=== PATIENT | male | born 1960 | race American Indian/Alaskan Native ===

== ENCOUNTER 2017-06-15 10:55 | Outpatient (CLI) | payer MEDICARE, OTHER ==
[2017-06-15] MEDS ORDERED: XYLOCAINE TOPICAL 4% TP ONE (12:08)
[2017-06-16] MEDS ORDERED: XYLOCAINE TOPICAL 4% TP ONE (16:12)
== END 2017-06-15 10:56 | disposition home or self-care (01) ==
LOC: WOUND 10:55
PROVIDERS: ATTEND Surgery
DX: S81.801A Unspecified open wound, right lower leg, initial encounter (principal); Z94.0 Kidney transplant status; X58.XXXA Exposure to other specified factors, initial encounter; Y93.89 Activity, other specified; Y92.89 Other specified places as the place of occurrence of the external cause; Y99.8 Other external cause status
CPT/HCPCS: 11042; G0463

== ENCOUNTER 2017-06-21 10:30 | Outpatient (CLI) | payer MEDICARE, OTHER ==
[2017-06-21] MEDS ORDERED: XYLOCAINE TOPICAL 4% TP ONE ×2 (11:29→11:34)
== END 2017-06-21 10:31 | disposition home or self-care (01) ==
LOC: WOUND 10:30
PROVIDERS: ATTEND Surgery
DX: E11.622 Type 2 diabetes mellitus with other skin ulcer (principal); L97.812 Non-pressure chronic ulcer of other part of right lower leg with fat layer exposed; L12.0 Bullous pemphigoid; Z94.0 Kidney transplant status

== ENCOUNTER 2017-06-28 10:23 | Outpatient (CLI) | payer MEDICARE, OTHER ==
[2017-06-28] MEDS ORDERED: XYLOCAINE TOPICAL 4% TP ONE ×2 (11:06→11:17)
== END 2017-06-28 10:24 | disposition home or self-care (01) ==
LOC: WOUND 10:23
PROVIDERS: ATTEND Surgery
DX: L12.0 Bullous pemphigoid (principal); L97.812 Non-pressure chronic ulcer of other part of right lower leg with fat layer exposed; E11.622 Type 2 diabetes mellitus with other skin ulcer; Z94.0 Kidney transplant status

== ENCOUNTER 2017-07-06 13:46 | Outpatient (CLI) | payer MEDICARE, OTHER ==
[2017-07-06] MEDS ORDERED: XYLOCAINE TOPICAL 4% TP ONE ×2 (13:55→14:01)
== END 2017-07-06 13:47 | disposition home or self-care (01) ==
LOC: WOUND 13:46
PROVIDERS: ATTEND Surgery
DX: E11.622 Type 2 diabetes mellitus with other skin ulcer (principal); L97.812 Non-pressure chronic ulcer of other part of right lower leg with fat layer exposed; L12.0 Bullous pemphigoid; Z94.0 Kidney transplant status; Z85.528 Personal history of other malignant neoplasm of kidney

== ENCOUNTER 2017-07-13 13:28 | Outpatient (CLI) | payer MEDICARE, OTHER ==
[2017-07-13] MEDS ORDERED: XYLOCAINE TOPICAL 4% TP ONE ×2 (13:52→13:57)
== END 2017-07-13 13:29 | disposition home or self-care (01) ==
LOC: WOUND 13:28
PROVIDERS: ATTEND Surgery
DX: L97.812 Non-pressure chronic ulcer of other part of right lower leg with fat layer exposed (principal); L12.0 Bullous pemphigoid; E11.22 Type 2 diabetes mellitus with diabetic chronic kidney disease; Z94.0 Kidney transplant status
CPT/HCPCS: 97597; 97598

== ENCOUNTER 2017-07-19 13:12 | Outpatient (CLI) | payer MEDICARE, OTHER ==
[2017-07-19] MEDS ORDERED: XYLOCAINE TOPICAL 4% TP ONE ×2 (13:31→13:34)
== END 2017-07-19 13:13 | disposition home or self-care (01) ==
LOC: WOUND 13:12
PROVIDERS: ATTEND Surgery
DX: E11.622 Type 2 diabetes mellitus with other skin ulcer (principal); L97.812 Non-pressure chronic ulcer of other part of right lower leg with fat layer exposed; L12.0 Bullous pemphigoid

== ENCOUNTER 2017-08-16 12:59 | Outpatient (CLI) | payer MEDICARE, OTHER ==
[2017-08-16] MEDS ORDERED: XYLOCAINE TOPICAL 2% TP ONE ×2 (13:15→14:42)
== END 2017-08-16 13:00 | disposition home or self-care (01) ==
LOC: WOUND 12:59
PROVIDERS: ATTEND Surgery
DX: S81.802D Unspecified open wound, left lower leg, subsequent encounter (principal); S81.801D Unspecified open wound, right lower leg, subsequent encounter; E11.9 Type 2 diabetes mellitus without complications; X58.XXXD Exposure to other specified factors, subsequent encounter
CPT/HCPCS: 97597; 97598